=== PATIENT | female | born 1965 | race Caucasian/White ===

== ENCOUNTER 2020-07-27 11:57 | Emergency (ER) | payer OTHER ==
[2020-07-27 12:33] LABS: BASOPHIL 0.6 % (0-2); EOSINOPHIL 0.9 % (0-5); HCT 37.6 % (37.0-47.0); HGB 11.7 g/dl (12.5-16.0); LYMPHOCYTE 28.2 % (15-48); MCH 29.6 pg (25.0-31.0); MCHC 31.1 g/dL (32.0-36.0); MCV 95.2 fL (78.0-100.0); MONOCYTE 11.3 % (0-12); MPV 8.8 fL (6.0-9.5); NEUTROPHIL 58.8 % (41-80); NRBC 0; PLT 367 K/uL (150-400); RBC 3.95 M/uL (4.20-5.40); RDW 14.1 % (11.5-14.0); WBC 8.8 K/uL (4.0-10.5)
[2020-07-27 12:43] LABS: INR 1.09 (0.9-1.2); PROTHROMBIN TIME 13.4 SECONDS (11.4-13.6); PTT 30.1 SECONDS (22.2-34.7)
[2020-07-27 12:44] LABS: IRON % SATURATION 7.2 %SAT (20-50)
[2020-07-27 12:51] LABS: ALBUMIN 3.8 g/dL (3.4-5.0); BILIRUBIN - TOTAL 0.3 mg/dL (0.2-1.0); BUN/CREAT RATIO (CALC) 9.2 RATIO; CREATININE 0.76 mg/dL (0.51-0.95); GLOBULIN (CALCULATION) 4.3 g/dL; MAGNESIUM 1.9 mg/dL (1.8-2.4); POTASSIUM 3.9 mmol/L (3.5-5.1); TOTAL PROTEIN 8.1 g/dL (6.4-8.2)
[2020-07-27 13:05] LABS: D-DIMER 18.29 ug/mLFEU (0.00-0.41)
[2020-07-27 13:12] LABS: LACTIC ACID 3.5 mmol/L (0.4-1.9)
[2020-07-27 13:15] LABS: BILIRUBIN NEGATIVE (NEGATIVE); BLOOD 2+ Ery/uL (NEGATIVE); CLARITY HAZY (CLEAR); COLOR YELLOW (YELLOW); GLUCOSE (U) NORMAL (NORMAL); LEUKOCYTES NEGATIVE Leu/uL (NEGATIVE); NITRITE NEGATIVE (NEGATIVE); PROTEIN NEGATIVE (NEGATIVE); SPECIFIC GRAVITY 1.015 (1.001-1.030); UROBILINOGEN 0.2 mg/dL (0.2-1.0)
[2020-07-27 13:28] LABS: BACTERIA 1+
== END 2020-07-28 01:11 | disposition other institution (70) ==
LOC: FER 11:57
PROVIDERS: Emergency Medicine
DX: I26.09 Other pulmonary embolism with acute cor pulmonale (principal); I21.4 Non-ST elevation (NSTEMI) myocardial infarction; Z88.0 Allergy status to penicillin; Z91.041 Radiographic dye allergy status; Z86.711 Personal history of pulmonary embolism; Z98.890 Other specified postprocedural states
CPT/HCPCS: 36415; 71275; 80053; 81001; 83540; 83550; 83605; 83735; 83880; 84145; 84443; 84484; 85025; 85379; 85610; 85730; 93005; J1170; J1644; J2405; Q9967

== ENCOUNTER 2021-09-07 05:29 | Emergency (ER) | payer OTHER ==
[2021-09-07 07:08] LABS: BASOPHIL 0.4 % (0-2); EOSINOPHIL 0.8 % (0-5); HCT 40.4 % (37.0-47.0); HGB 12.7 g/dl (12.5-16.0); LYMPHOCYTE 18.5 % (15-48); MCH 28.9 pg (25.0-31.0); MCHC 31.4 g/dL (32.0-36.0); MCV 91.8 fL (78.0-100.0); MONOCYTE 13.3 % (0-12); MPV 8.9 fL (6.0-9.5); NEUTROPHIL 66.6 % (41-80); NRBC 0; PLT 373 K/uL (150-400); RDW 15.9 % (11.5-14.0); WBC 13.8 K/uL (4.0-10.5)
[2021-09-07 07:53] LABS: ALBUMIN 3.8 g/dL (3.4-5.0); BILIRUBIN - TOTAL 0.3 mg/dL (0.2-1.0); BUN/CREAT RATIO (CALC) 22.9 RATIO; CREATININE 0.7 mg/dL (0.51-0.95); GLOBULIN (CALCULATION) 3.7 g/dL; POTASSIUM 4.2 mmol/L (3.5-5.1); TOTAL PROTEIN 7.5 g/dL (6.4-8.2)
[2021-09-07 08:16] LABS: BILIRUBIN NEGATIVE (NEGATIVE); BLOOD 3+ Ery/uL (NEGATIVE); CLARITY CLEAR (CLEAR); COLOR YELLOW (YELLOW); GLUCOSE (U) NORMAL (NORMAL); LEUKOCYTES NEGATIVE Leu/uL (NEGATIVE); NITRITE NEGATIVE (NEGATIVE); PROTEIN NEGATIVE (NEGATIVE); UROBILINOGEN 0.2 mg/dL (0.2-1.0)
[2021-09-07 08:42] LABS: BACTERIA TRACE; URINARY WBC RARE
[2021-09-07 10:43] LABS: INR 1.11 (0.9-1.2); PROTHROMBIN TIME 13.7 SECONDS (11.8-13.4)
[2021-09-07 10:44] LABS: PTT 30.3 SECONDS (24.4-34.7)
[2021-09-07 13:32] LABS: HCT 38.9 % (37.0-47.0); HGB 12.1 g/dL (12.5-16.0)
[2021-09-09 14:11] LABS: DRVVT 59.3 sec (0.0-47.0); DRVVT CONFIRM 1.2 ratio (0.8-1.2); LUPUS REFLEX INTERPRETATION Comment: (.); PTT-LA 35.2 sec (0.0-51.9)
== END 2021-09-07 14:25 | disposition other institution (70) ==
LOC: FER 05:29
PROVIDERS: Emergency Medicine; Internal Medicine
DX: D73.5 Infarction of spleen (principal); D68.59 Other primary thrombophilia; Z87.891 Personal history of nicotine dependence; Z88.0 Allergy status to penicillin; Z91.040 Latex allergy status; Z91.041 Radiographic dye allergy status; Z86.718 Personal history of other venous thrombosis and embolism; Z79.01 Long term (current) use of anticoagulants
CPT/HCPCS: 36415; 80053; 81001; 83690; 83735; 84145; 84484; 85014; 85018; 85025; 85300; 85303; 85306; 85610; 85613; 85730; 85732; 93005; J1170; J1644; J2405; J7030; J7040